=== PATIENT | female | born 1990 | race Hispanic/Latino ===

== ENCOUNTER 2019-03-01 09:55 | Outpatient (CLI) | payer OTHER ==
--- NOTE | 2019-03-01 10:45 | ULT ---
EXAM: OB ultrasound COMPARISON: None HISTORY: female. Evaluate size, dates, and anatomy. TECHNIQUE: Multiplanar grayscale and color Doppler transabdominal sonographic images are obtained. FINDINGS: There is a single intrauterine gestation in variable presentation. Cardiac Doppler demonstr ates heart tones with a heart rate of 135 beats per minute. The placenta is located posteriorly and is borderline low lying. There is a normal amount of amniotic fluid with an amniotic fluid index of 10.15 centimeters. The cervical length based on transabdominal imaging measures 8.4 cm based on transabdominal imaging. biometry measurements: BPD 4.48 cm -- 19 weeks 4 days HC 17.04 cm -- 19 weeks 5 days AC 15.72 cm -- 21 weeks FL 3.15 cm -- 19 weeks 6 days The estimated gestational age by ultrasound is 20 weeks 1 day with an CHAD on07/18/2019. Gestational ag e by the last menstrual period is 20 weeks 4 days. The estimated weight by ultrasound is 343 g (12 ounces). This represents 29 percentile for feta l weight. A 4 chambered heart is visualized. The cerebellum, visualized portions of the spine, kidneys, u rinary bladder, and cord insertion demonstrate a normal sonographic appearance. A three-vessel cord is not visualized, but there is flow on either side of the urinary bladder sugges ting a three-vessel cord.. No anomalies are seen. IMPRESSION: 1. Single intrauterine gestation in variable presentation with heart tones documented. Estimate d gestational age by ultrasound is 20 weeks 1 day. 2. Estimated weight is 343 g (12 ounces). 3. Amniotic fluid index is 10.15 centimeters.
== END 2019-03-01 09:56 | disposition home or self-care (01) ==
LOC: BICULT 09:55
PROVIDERS: ATTEND Family Medicine
DX: Z34.82 Encounter for supervision of other normal pregnancy, second trimester (principal); Z3A.20 20 weeks gestation of pregnancy
CPT/HCPCS: 76805

== ENCOUNTER 2019-07-01 15:01 | Day surgery (SDC) | payer OTHER ==
[2019-07-01 15:46] VITALS: BP 115/61; TEMP 99.2; BMI 28.7
--- NOTE | 2019-07-01 16:31 | PDOC.FPROB ---
FMR OB H&P: HPI - History of Present Illness Chief Complaint: CTX Indentification: G1 at 38 wga here for CTX History of Present Illness: 28 yo G1 at ~38wga here for CTX starting today. States they're every 5 minutes. Also c/o new white VD starting a few days ago. No fevers or chills. Denies VB/ LOF/dysuria. Denies complications during Primary Care Physician: Dr. 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: First - Surgical History Sx History: Denies - Social History Social History: Denies TAD - Family History Family History: N/C FMR OB H&P: Medications - Current Home Medications: Medication Instructions Recorded Confirmed Type Vit No.126/Iron/Folic 1 capsule PO DAILY 09/16/14 09/16/14 History [Classic ] metroNIDAZOLE [Flagyl] 500 mg PO BID 7 Days #14 tab 07/01/19 Rx metroNIDAZOLE [Flagyl] 500 mg PO BID 7 Days #14 tab 07/01/19 Rx Allergies/Adverse Reactions: Allergies Allergy/AdvReac Type Severity Reaction Status Date / Time No Known Allergies Allergy Unverified 09/16/14 19:14 FMR OB H&P: ROS - Review of Systems General: denies: fever/chills, weight/appetite/sleep changes Eyes: denies: vision changes, double vision ENT: denies: nasal congestion, rhinorrhea, sore throat Cardiovascular: denies: chest pain, palpitation Gastrointestinal: denies: abdominal pain Genitourinary (Female): reports: vaginal discharge, contractions, vaginal pressure. denies: dysuria, vaginal bleeding Musculoskeletal: denies: pain, stiffness, tenderness Neurologic: denies: syncope, seizures Integumentary: denies: itching, rash, lesions Endocrine: denies: cold intolerance, heat intolerance FMR OB H&P: Vital Signs - Maternal Vital signs: Vital Signs - First Documented Temp Pulse Resp BP Pulse Ox 99.2 F 84 18 115/61 98 07/01/19 15:40 07/01/19 15:40 07/01/19 15:40 07/01/19 15:40 07/01/19 15:40 - Heart Tones Baseline: 130 Variability: moderate Acceleration: present Deceleration: absent Category: category 1 FMR OB H&P: Physical Exam - Physical Exam General: NAD, awake, alert and oriented HEENT: normocephalic and atraumatic, EOMI, MMM Neck: trachea midline, no LAD Heart: no murmurs/rubs/gallops, pulses present General: no respiratory distress Abdomen: soft, gravid, non-tender Musculoskeletal: FROM in all four extremities Skin: no rash, capillary refill <2 seconds Psychiatric: intact recent and remote memory, good judgement and insight - Pelvic Exam SVE: cl/th/high/posterior FMR OB H&P: A/P - Problem List (1) Term Status: Acute Code(s): Z34.90 - ENCNTR FOR SUPRVSN OF NORMAL , UNSP, UNSP TRIMESTER Disposition: 28 yo G1 here for labor rule out 1. Term sIUP at ~38 wga -Cl/th/h on exam -FHT: reactive & reassuring, no CTX on on monitor -VP3 for vaginal discharge Dispo: Pending results Discussion: Date/Time: 07/01/19 1630 This H&P was discussed with [] and [] who agree with the above documentation and plan. Addendum - Attending - Attending Attestation Date/Time: 07/01/19 1386 I personally evaluated the patient and discussed the management with Dr. Dudley. I agree with the History, Examination, Assessment and Plan documented above.
[2019-07-01] MEDS ORDERED: hydrALAZINE 20 MG/ML VIAL SLOW IVP PRN (16:41)
--- NOTE | 2019-07-01 17:27 | PDOC.BPN ---
- Brief Progress Note VP3 positive for BV, will send for flagyl discussed w/ patient FHT: reactive, reassuring, uterine irritability Discussed diagnosis with patient, answered all questions Discussed labor precuations [facility]
== END 2019-07-01 17:29 | disposition home health service (06) ==
LOC: L&D/OP 15:01
PROVIDERS: ATTEND Family Medicine
DX: O47.1 False labor at or after 37 completed weeks of gestation (principal); O23.593 Infection of other part of genital tract in pregnancy, third trimester; B96.89 Other specified bacterial agents as the cause of diseases classified elsewhere; Z3A.38 38 weeks gestation of pregnancy
CPT/HCPCS: 87480; 87510; 87660; 99283

== ENCOUNTER 2019-07-08 19:15 | Inpatient (IN) | payer OTHER ==
[2019-07-08 20:00] VITALS: BMI 27.8
[2019-07-08] MEDS ORDERED: Methylergonovine 0.2 MG/ML VIAL IM PRN (20:25)
[2019-07-08] MEDS ORDERED: Misoprostol 200 MCG TAB PR PRN (20:25)
[2019-07-08] MEDS ORDERED: Promethazine HCl 25 MG/ML VIAL IM PRN (20:25)
[2019-07-08] MEDS ORDERED: hydrALAZINE 20 MG/ML VIAL SLOW IVP PRN (20:25)
[2019-07-08] MEDS ORDERED: Carboprost 250 MCG/ML AMP IM PRN (20:25)
[2019-07-08] MEDS ORDERED: Butorphanol Tartrate 1 MG/ML VIAL SLOW IVP PRN (20:25)
[2019-07-08] MEDS ORDERED: Ibuprofen 800 MG TAB PO PRN (20:25)
[2019-07-08] MEDS ORDERED: Ondansetron PF 4 MG/2 ML Vial IVP PRN (20:25)
[2019-07-08] MEDS ORDERED: NS / Oxytocin 40 units/1000ml 1,000 ML IV PRN (20:25)
[2019-07-08] MEDS ORDERED: HYDROcodone/Acetaminophen 5/325 mg Tablet PO PRN (20:25)
[2019-07-08] MEDS ORDERED: Lidocaine 1% (PF) 30 ML VIAL SC PRN (20:25)
[2019-07-08] MEDS ORDERED: Diphenoxylate HCl/Atropine Tablet PO PRN (20:25)
[2019-07-08] MEDS ORDERED: NS w/ Oxytocin 10 units 500 ML IV SCH ×2 (20:30)
[2019-07-08] MEDS: Lactated Ringer's 1,000 ML IV SCH (21:31)
[2019-07-08 21:43] LABS: Hemoglobin 11.9 g/dL (12.0-16.0); Mean Corpuscular HGB CONC 35.4 g/dL (32.0-36.0); Mean Corpuscular Volume 90.4 fL (78.0-98.0); Mean Platelet Volume 8.1 fL (7.4-10.4); Platelet Count 202 thou/uL (130-400); Red Blood Cell (RBC) Count 3.73 mill/uL (4.20-5.40); White Blood Cell (WBC) Count 6.3 thou/uL (4.8-10.8)
[2019-07-08 22:19] LABS: Syphilis Antibody Nonreactive (Nonreactive); Syphilis Antibody Index 0.04 S/CO (<1.00 Non-Reactive)
[2019-07-08 22:43] LABS: HBSAg Index 0.17 S/CO (0-0.99); Hep B Surf Ag Non-Reactive S/CO (NonReactive)
[2019-07-09] MEDS ORDERED: Misoprostol 100 MCG TAB PO SCH (01:00)
[2019-07-09] MEDS: Lactated Ringer's 1,000 ML IV SCH (05:47)
[2019-07-09] MEDS ORDERED: Methylergonovine 0.2 MG/ML VIAL ONE (12:59)
[2019-07-09] MEDS ORDERED: Carboprost 250 MCG/ML AMP ONE (12:59)
[2019-07-09] MEDS ORDERED: Milk Of Magnesia 30 ML UDCUP PO PRN (14:23)
[2019-07-09] MEDS ORDERED: Lanolin Ointment 7 GM TUBE TOP PRN (14:23)
[2019-07-09] MEDS ORDERED: NS / Oxytocin 40 units/1000ml 1,000 ML IV SCH (14:23)
[2019-07-09] MEDS ORDERED: Promethazine HCl 25 MG/ML VIAL IM PRN (14:23)
[2019-07-09] MEDS ORDERED: HYDROcodone/Acetaminophen 5/325 mg Tablet PO PRN ×2 (14:23)
[2019-07-09] MEDS ORDERED: Ondansetron PF 4 MG/2 ML Vial IVP PRN (14:23)
[2019-07-09] MEDS ORDERED: diphenhydrAMINE 25 MG CAP PO PRN (14:23)
[2019-07-09] MEDS ORDERED: Preparation H Ointment 57 gram tube RC PRN (14:23)
[2019-07-09] MEDS ORDERED: hydrALAZINE 20 MG/ML VIAL SLOW IVP PRN (14:23)
[2019-07-09] MEDS ORDERED: Bisacodyl 10 MG SUPP PR PRN (14:23)
[2019-07-09] MEDS: Ferrous Sulfate 325 MG TAB PO SCH (16:58)
[2019-07-09] MEDS: Docusate Calcium (SURFAK) 240 MG CAP PO SCH (21:17)
[2019-07-09] MEDS: Ibuprofen 800 MG TAB PO SCH (21:17)
[2019-07-10] MEDS: Ibuprofen 800 MG TAB PO SCH ×2 (04:58→15:07)
[2019-07-10 06:17] LABS: Hemoglobin 9.4 g/dL (12.0-16.0); Mean Corpuscular HGB CONC 34.4 g/dL (32.0-36.0); Mean Corpuscular Hemoglobin 31.5 pg (27.0-31.0); Mean Corpuscular Volume 91.5 fL (78.0-98.0); Platelet Count 171 thou/uL (130-400); RBC Distribution Width 12.2 % (11.5-14.5); Red Blood Cell (RBC) Count 2.97 mill/uL (4.20-5.40); White Blood Cell (WBC) Count 9.8 thou/uL (4.8-10.8)
[2019-07-10] MEDS ORDERED: Prenatal Vitamin 1 TAB PO SCH (09:00)
[2019-07-10] MEDS ORDERED: Adacel (T-DAP) 0.5 ML SYRINGE IM ONE (09:00)
[2019-07-10] MEDS: Docusate Calcium (SURFAK) 240 MG CAP PO SCH (09:38)
[2019-07-10] MEDS: Ferrous Sulfate 325 MG TAB PO SCH ×2 (09:39→18:11)
[2019-07-10 12:11] VITALS: BP 124/69; TEMP 99.4
--- NOTE | 2019-07-12 10:44 | PQF ---
Chuck Wyatt ROLAND R MD [id number] CLINICAL DOCUMENTATION CLARIFICATION FORM: POST DISCHARGE Addendum to original discharge summary date: ____ Late entry note date: __ DATE:07/12/2019 ATTN:BONNY HAY MD Please exercise your independent, professional judgment in responding to the clarification form. Clinical indicators are provided on the bottom of this form for your review Please check appropriate box(s): [ X ] Acute blood loss anemia [ ] Post-op anemia related to acute blood loss [ ] Anemia NOS [ ] Other diagnosis [ ] Unable to determine In addition, please specify: Present on Admission (POA): [ ] Yes [ X ] No [ ] Unable to determine For continuity of documentation, please document condition throughout progress notes and discharge summary. Thank You. CLINICAL INDICATORS - SIGNS / SYMPTOMS / LABS HGB-11.9 to 9.4-Documented in Laboratory HCT-33.7 to 27.2-Documented in Laboratory Estimated blood loss 700 ml -Documented in scanned progress notes vaginal delivery -Documented in scanned labor and delivery note RISK FACTORS vaginal delivery -Documented in scanned labor and delivery note TREATMENTS: Ferrous sulfate 325 mg PO -Documented in medication snapshot MTDD
== END 2019-07-10 20:07 | disposition home or self-care (01) | DRG 806 ==
LOC: L&D 19:20 → 3SW 07-09 16:44
PROVIDERS: ADMIT Family Medicine; ATTEND Family Medicine
PROC: 10E0XZZ Delivery of Products of Conception, External Approach (ICD-10-PCS; principal; 2019-07-09)
PROC: 10907ZC Drainage of Amniotic Fluid, Therapeutic from Products of Conception, Via Natural or Artificial Opening (ICD-10-PCS; 2019-07-09)
DX: O99.02 Anemia complicating childbirth (principal); D62 Acute posthemorrhagic anemia; Z37.0 Single live birth; Z3A.39 39 weeks gestation of pregnancy
CPT/HCPCS: 36415; 85027; 86780; 86850; 86900; 86901; 87340; J0595; J2210; J2590; J3490